=== PATIENT | female | born 1965 | race Caucasian/White ===

== ENCOUNTER → 2023-01-23 16:28 | Outpatient (CLI) | payer OTHER, SELFPAY | PROVIDERS: PCP Internal Medicine; Referring Provider Orthopaedic Surgery Orthopaedic Surgery of the Spine; Visit Provider Orthopaedic Surgery Orthopaedic Surgery of the Spine | DX: Z01.818 Encounter for other preprocedural examination (principal) | CPT/HCPCS: 93005; 93010 ==

== ENCOUNTER 2023-02-08 06:28 | Inpatient (IN) | payer OTHER, SELFPAY ==
[2023-02-04 10:46] VITALS: BMI 37.2
[2023-02-08] VITALS (14 sets, daily range): BP systolic 113–156; BP diastolic 52–82; PULSE 66–103; RESP 12–18; TEMP 36–37.1; O2SAT 93–100; BMI 37.2
--- NOTE | 2023-02-08 | DI.RAD.S_ITS ---
PROCEDURE: XR LUMBAR SPINE 2-3V INDICATIONS: L3-4 TLIF TECHNIQUE: And 2 low resolution fluoroscopic spot films were obtained intraoperatively COMPARISON: None. FINDINGS: Intraoperative fluoroscopic spot films shows L3-4 interbody fusion with posterior prema and screw instrumentation. Additional partially imaged lower lumbar spine at instrumentation noted as well IMPRESSION: Fluoroscopic guidance Approved by: Xavier Flynn M.D. on 02/08/2023 at 11:00
[2023-02-08] MEDS: LACTATED RINGERS 1,000 ML 42 ML IV (07:09)
--- NOTE | 2023-02-08 07:39 | PM.PREOP ---
Pre-operative Note COVID-19 Criteria for continued procedure: Expected advancement of disease process, Possibility delay results in more complex future surgery or treatment, Increased loss of function, Continuing or worsening of significant or severe pain, Deterioration of the patient's condition or overall health and Delay expected to result in less-positive ultimate med/surg outcome Interval Note History & Physical reviewed/Exam performed by Physician: Yes Changes to H&P: No
[2023-02-08] MEDS: CEFAZOLIN 2 GM/100 ML PREMIX 100 ML IV ×2 (08:05→15:58)
--- NOTE | 2023-02-08 08:23 | SUR.OPER ---
Prone on spine table, head in foam head support, padded chest and pelvic supports, gel pad at knees, lower legs supported by pillows; nipples, genitalia and toes free of pressure, arms secured on foam padded arm boards at <90 degrees abduction. Gel pads to abdomen. Tape over blanket at thigh secured to table.
[2023-02-08] MEDS: BUPIVACAINE LIPOSOME 266 MG/20 ML VIAL INJ (08:31)
[2023-02-08] MEDS: BUPIVACAINE 0.25% (PF) 60 ML, EPINEPHrine 0.15 MG INJ (08:32)
--- NOTE | 2023-02-08 11:04 | PM.OP.1 ---
Operative Date/Time/Diagnoses Date of procedure: 02/08/23 Time of procedure: 07:40 Pre-op diagnosis: 1. L3-4 spinal stenosis with neurogenic claudication 2. History of L4-S1 fusion with instrumentation Post-op diagnosis: same Procedure & Clinicians Procedure: 1. L3-4 posterolateral and posterior interbody fusion 2. L3-4 posterior interbody cage placement 3. L4-5 revision laminectomy with exploration of fusion 4. L3-4 posterior segmental instrumentation with pedicle screw placement 5. L4-5 posterolateral fusion 6. [place] of bone marrow from iliac crest through a separate incision 7. Utilization of microsurgical technique and operating microscope Same procedure as scheduled: Yes Indications: Patient has been having chronic back pain and worsening lumbar radiculopathy and symptoms of neurogenic claudication. Patient failed multiple conservative management with worsening pain weakness and numbness in her lower extremity. Patient has been having difficulty performing activity of daily living. After discussing risks benefits of treatment options, patient elected proceed with surgery. Surgeon: Greta Corrigan Organizational Research Consultant: Kena Davis Click Yes if Unassisted: No Anesthesia Type: General Operative Notes Closure Type: primary Specimen(s): none sent Prosthetic devices, grafts, tissues, transplants, or devices: Globus CREO MIS screws, Rise cage, Globus Extend system Estimated Blood Loss (mL): 150 Blood products transfused: none Procedure in detail: Patient was seen in the preoperative area. Risks and benefits of the surgery was discussed with the patient. Informed consent was obtained from the patient and placed in the chart. Surgical site was marked. Patient was taken to the operative room. General anesthesia was administered. Prophylactic antibiotic was given to the patient less than 30 min before the incision was made. Patient was placed into a prone position on the Isiah table. Patient's back was then prepped and draped in the sterile fashion. Time-out was performed at this time. Using patient's previous scar incision was made over the L3-5 interval on the right side. Fascia was incised in line with skin incision. Patient's previously placed hardware over the L3-5 level was identified by dissecting down to the level the hardware using a Bovie and a Lopez. The L4-L5 Tulip and rods was exposed and freed up of any scar tissue and calcified fusion mass in order to attach extension of posterior hardware. The Globus and MARS retractors was then placed into the wound and docked onto the L3 lamina using C-arm guidance. Using microsurgical technique and operating microscope a laminectomy facetectomy was performed by removing the L3 lamina and the L3-4 facet. The laminectomy and facetectomy was performed in order to decompress patient's cauda equina as well as the nerve roots exiting at the L3-4 level. The disc space at L3-4 level was identified next. And a total diskectomy was performed at L3-4 level. The endplates were decorticated using a rasp and shaver. The total diskectomy and decortication was performed at L3-4 level in order to to accomplish a L3-4 fusion. The local bone from the laminectomy and facetectomy was saved for local bone grafting. After the total diskectomy and decortication was completed, Globus Trifecta bone graft material was combined with local bone that was harvested earlier. At this time, a separate skin is incision was made over the iliac crest. A Jamshidi needle was inserted into the iliac crest through a separate skin incision. 5 cc of bone marrow aspiration was obtained through the separate skin incision using a Jamshidi needle from the iliac crest. The bone marrow aspiration was combined with local bone and the Trifecta bone grafting material. The bone grafting material was placed into the L3-4 interbody space along with a expandable cage. The cage was expanded to its maximum height using the torque limiting screwdriver. At this time a mirror image incision was made on the left side. The fascia was incised in line with the skin incision. Patient's previously placed hardware on the left side was then exposed in the same fashion as it was on the right side. The hardware was also found to have good purchase. The fusion mass on the left side was exposed by performing a left-sided hemilaminectomy at L4-5 level. The hemilaminectomy was performed using the Kerrison rongeur to undercut the lamina as well removing additional epidural scar tissue for purpose of decompressing the epidural space. The fusion mass was explored and was found have visible motion indicating pseudoarthrosis at L3-4 level. Globus MARS retractor was inserted and docked onto the L3-4, L4-5 posterolateral gutter. Using the power drill, posterior-lateral decortication was performed at L3-4, L4-5 level until bleeding cortical bone was identified. The remaining bone grafting material was placed into the L3-4, L4-5 posterior lateral gutter he order to accomplish posterolateral fusion at the L3-4, L4-5 level. Using the double C-arm technique, pedicle screws were placed into the L3 pedicles on the right side. This was done by placing the Jamshidi needle into the pedicles, then placing the guidewires over the Jamshidi needle, and finally placing the cannulated screws over the guidewires on the right side. A L3 pedicle screw was placed into the left side using the same technique over time she and guidewire. The [employer] expansion system was used to attach the L3 pedicle screw to the prema between L3-4 pedicle on both sides. After all locking bolt was tightened down using torque limiting drivers, locking prema was then placed into the tulips and locked into place used torque limiting screwdriver. After the pedicle screws were placed, 2 titanium rods was locked into the heads of the pedicle screws using locking caps and torque limiting screwdriver. All hardware was found to have good purchase. After all the hardware was placed, and confirmed with AP and lateral C-arm imaging, the wound was then irrigated with sterile normal saline and packed with Ray-Ynes gauze for 3 min to accomplish hemostasis. After the gauze was removed the deep fascia was closed with #1 Vicryl suture. The subcutaneous layer was closed with 2-0 Vicryl. The skin was closed with skin josy. Patient tolerated the procedure well. There were no complications. Neuro monitoring was used throughout the entire case. The Operation could not have been safely performed without compromising the technical result or length of the procedure, without the assistance of a skilled surgical services asst. The surgical services asst was medically necessary for proper positioning, retraction and manipulation of instruments, proper exposure, surgical preparation, and manipulation of tissue. Complications: none Post-operative Condition: stable Disposition: PACU Plan for aftercare: Admit to inpatient hospital
--- NOTE | 2023-02-08 11:28 | SUR.PREOP ---
attempted to call report to floor
[2023-02-08] MEDS: LACTATED RINGERS 1,000 ML 125 ML IV (13:40)
--- NOTE | 2023-02-08 14:20 | OT.IP.EVAL ---
Current Diagnoses Spinal stenosis, lumbar region with neurogenic claudication (02/08/23) Arthrodesis status (02/08/23) Surgery Performed Operation Date: 02/08/23 07:45 Actual Procedures p L3-4 TLIF, exploration of fusion - Greta Corrigan MD Past Medical History (Last Updated 02/04/23 @ 13:25 by Sabine Banda, RN) ADHD Anxiety Depression Easy bruisability Manjula-Danlos syndrome Elevated cholesterol Fibromyalgia GERD (gastroesophageal reflux disease) History of COVID-19 (08/2020) Cleary's neuroma of both feet Myelopathy PTSD (post-traumatic stress disorder) Sciatica Surgical History (Last Updated 02/04/23 @ 13:16 by Sabine Banda, RN) History of arthroscopy of right shoulder History of bilateral tubal ligation History of cholecystectomy (2003) History of femoral hernia repair History of hysterectomy History of lumbar spinal fusion (2011) Hx of oophorectomy Hx of sinus surgery Hx of tonsillectomy (1983) Occupational Therapy Inpatient Evaluation/Re-Eval M1 PT/OT-IP Prior Functional Status Start: 02/08/23 14:20 Freq: NEEDED Status: Active Protocol: Document 02/08/23 14:21 [facility] (Rec: 02/08/23 14:45 [facility] [id number]) Medical Review Prior Functional Status Communication Independent Mobility and Gait On occasion use of SPC for mobility. Activities of Daily Living and IADL's Pt able to do all ADl and IADL but had pain. Social History Household Members spouse Living Arrangements House Number of Floors (Floors) One Floor Number of Stairs To Enter/Railing? On small step/threshold to be able to get into the house. 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 M2 OT-IP Current Condition Start: 02/08/23 14:20 Freq: Status: Active Protocol: Document 02/08/23 14:21 [facility] (Rec: 02/08/23 14:45 [facility] [id number]) Occupational Therapy Current Condition Current Condition Evaluation Date 02/08/23 Treatment Diagnosis S/p L3-4, L4-5 TLIF Diagnosis Onset Date 02/08/23 Post Operative Precautions Lumbar Precautions Log Roll,No Twisting,Limit Bending,Lifting Restriction of 10 lbs,Gait Belt above Incisional Area M3 OT- IP Subjective and Pain Start: 02/08/23 14:20 Freq: Status: Active Protocol: Document 02/08/23 14:21 [facility] (Rec: 02/08/23 14:45 [facility] [id number]) OT- Subjective Occupational Therapy Visit Type Type Initial Evaluation Visit Start Time 13:47 Visit Stop Time 14:20 Total Visit Minutes 33 Occupational Therapy Visit Comments Patient Comments Pt agreed to get up and her spouse in the room. Patient/Caregiver Goals To go home OT Pain Assessment Pain When Pain Assessed At Rest Pain Present Pain Present Pain Reported Location back Intensity 1 Scale Used Numeric (0 - 10) M4 OT- IP ADL's Start: 02/08/23 14:20 Freq: Status: Active Protocol: Document 02/08/23 14:21 [facility] (Rec: 02/08/23 14:45 [facility] [id number]) OT [id number] Comments OT Self-Feeding Comments No issues anticipated. OT ADL-Grooming Comments OT Grooming Comments Not performed. OT ADL-Oral Care Comments Oral Care Comments Not performed. OT ADL-Dressing Comments OT Dressing Comments Pt has all LB dressing equipment needs at home. OT ADL-Toileting General Evaluation Toileting Ability Standby Assistance Comments OT Toileting Comments Pt able to wipe after urinating in the toilet. Pt states has a toilet paper aid at home and has considered getting a bidet. OT ADL-Bathing Comments OT Bathing Comments Pt's spouse can assist, may benefit from a shower chair. M5 OT- IP IADL's Start: 02/08/23 14:20 Freq: Status: Active Protocol: Document 02/08/23 14:21 [facility] (Rec: 02/08/23 14:45 [facility] [id number]) OT-Instrumental Activities of Daily Living Deficits IADL Deficits Identified Deficits Home Safety Awareness Awareness of Need for Assistance at Home Good Awareness Ability to Problem Solve Emergency Able to Problem Solve Situations Home Safety Comments Pt starting to get a little groggy. Pt's spouse to be able to assist. M6 OT- IP Functional Cognition Start: 02/08/23 14:20 Freq: Status: Active Protocol: Document 02/08/23 14:21 [facility] (Rec: 02/08/23 14:45 [facility] [id number]) Cognitive Factors Limiting Selfcare Function Cognitive Ability Level of Alertness Alert Patient Orientation Name,Place,Situation Attention Span Ability Capable of Focused Attention, Capable of Sustained Attention Ability to Follow Commands Able to Follow One Step Commands Cognitive Comments Cognitive Assessment Comments Pt able to follow commands for back precautions for bed mobility. Pt just needing reminders to use her hands to push up from the bed to stand and reach back with her hands prior to sitting back down. Also reminders to get he legs off the bed prior to pushing herself up from sidelying. OT- Vision and Hearing OT- Hearing Assessment OT- Hearing Assessment WFL M7 OT- IP Mobility and Balance Start: 02/08/23 14:20 Freq: Status: Active Protocol: Document 02/08/23 14:21 [facility] (Rec: 02/08/23 14:45 [facility] [id number]) OT- Bed Mobility Assessment Rolling Level of Assistance Standby Assistance Supine to Sit Supine to Sit Assist Contact Guard Assistance Scooting Scooting to Edge of Bed Standby Assistance OT-Transfer Assessment Sit to and From Stand Sit to and from Stand Contact Guard Assistance Transfers Transfer Ability Contact Guard Assistance Technique Transfer Destination Bed,Chair,Toilet Transfer Technique Stand Step Pivot Devices Transfer Assistive Devices Gait Belt,Front Wheeled Walker Comments Mobility Comments CGA to get upright and CGA to stand to FWW and for slight unsteadiness on her feet with use of FWW to walk to the bathroom and to the recliner. OT- Balance Assessment Sitting Balance and Reactions Static Sitting Balance Ability Good Dynamic Sitting Balance Ability Good Standing Balance and Reactions Static Standing Balance Ability Fair Dynamic Standing Balance Ability Fair M8 OT- IP Objective Assessments Start: 02/08/23 14:20 Freq: Status: Active Protocol: Document 02/08/23 14:21 [facility] (Rec: 02/08/23 14:45 [facility] [id number]) OT-Muscle Tone Assessment Muscle Tone WNL Yes M9 OT- IP Assessment and Plan Start: 02/08/23 14:20 Freq: Status: Active Protocol: Document 02/08/23 14:21 [facility] (Rec: 02/08/23 14:45 [facility] [id number]) OT Summary Assessment and Plan Potential Rehabilitation Potential Good Analytic Complexity at Evaluation Low Summary OT Impairments Pain,Balance,Functional Mobility,Dressing,Toileting, Bathing,Toilet Transfers, Shower Transfers Progress Towards Goals Progressing Toward Goals Assessment Summary Pt low complexity and able to use the toilet for OT eval. Pt has all LB dressing equipment , toilet paper aid, and considering getting a bidet. Pt looking to go home when medically stable. Pt on 2L O2 and at 95-100% and on RA from 88-93%. Pt to go home with her to assist when medically stable. Goals Self-Feeding Goal Independent Grooming Goal Independent Dressing Goal Independent Toileting Goal Independent Bathing Goal Independent Toilet Transfer Goal Independent Shower Transfer Goal Independent Days to Meet Goals 3 Frequency of Treatment Frequency Of Treatment Once a Day Treatment Plan OT Treatment Plan ADL Training,Functional Mobility,Patient/Family Education,Discharge Planning Discharge Recommendations OT Discharge Recommendations Home with Assistance Transportation Needs at Discharge Private Vehicle
--- NOTE | 2023-02-08 15:03 | PT.IIE ---
Current Diagnoses Spinal stenosis, lumbar region with neurogenic claudication (02/08/23) Arthrodesis status (02/08/23) Surgery Performed Operation Date: 02/08/23 07:45 Actual Procedures p L3-4 TLIF, exploration of fusion - Greta Corrigan MD Surgical History (Last Updated 02/04/23 @ 13:16 by Sabine Banda, RN) History of arthroscopy of right shoulder History of bilateral tubal ligation History of cholecystectomy (2003) History of femoral hernia repair History of hysterectomy History of lumbar spinal fusion (2011) Hx of oophorectomy Hx of sinus surgery Hx of tonsillectomy (1983) Medical History (Last Updated 02/04/23 @ 13:25 by Sabine Banda, RN) ADHD Anxiety Depression Easy bruisability Manjula-Danlos syndrome Elevated cholesterol Fibromyalgia GERD (gastroesophageal reflux disease) History of COVID-19 (08/2020) Cleary's neuroma of both feet Myelopathy PTSD (post-traumatic stress disorder) Sciatica Physical Therapy Inpatient Evaluation/Re-Eval M1 PT/OT-IP Prior Functional Status Start: 02/08/23 14:20 Freq: NEEDED Status: Active Protocol: Document 02/08/23 14:52 [facility] (Rec: 02/08/23 15:03 [facility] [id number]) Medical Review Prior Functional Status Medical History Reviewed Yes Diet/Fluid Consistency Regular Communication Independent Mobility and Gait On occasion use of SPC for mobility. Activities of Daily Living and IADL's Pt able to do all ADL and IADL but had pain. Social History Household Members spouse Living Arrangements House Number of Floors (Floors) One Floor Number of Stairs To Enter/Railing? On small step/threshold to be able to get into the house. 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 M2 PT-IP Current Condition Start: 02/08/23 14:44 Freq: NEEDED Status: Active Protocol: Document 02/08/23 14:52 [facility] (Rec: 02/08/23 15:03 [facility] [id number]) Physical Therapy Current Condition Current Condition Evaluation Date 02/08/23 Treatment Diagnosis S/p L3-4, L4-5 TLIF Onset Date 02/08/23 M3 PT-IP Subjective Start: 02/08/23 14:44 Freq: NEEDED Status: Active Protocol: Document 02/08/23 14:52 [facility] (Rec: 02/08/23 15:03 [facility] [id number]) Subjective Physical Therapy Visit Type Type Initial Evaluation Visit Start Time 14:16 Visit Stop Time 14:34 Total Visit Minutes 22 Physical Therapy Visit Comments Patient Comments Patient up in chair after OT session. present. Patient reported no pain but feeling a little shaky in her legs. Agreeable to walk with PT. Therapy Pain Assessment Pain When Pain Assessed During Mobility Pain Present Pain Present Denied Pain M4 PT-IP Mobility and Gait Start: 02/08/23 14:44 Freq: NEEDED Status: Active Protocol: Document 02/08/23 14:52 [facility] (Rec: 02/08/23 15:03 [facility] [id number]) PT-Transfer Assessment Sit to and From Stand Sit to and from Stand Standby Assistance,Use of Upper Extremities Equipment Transfer Assistive Device Gait Belt,Front Wheeled Walker Transfers Transfer Destination Chair Comments Mobility Comments Patient demonstrated appropriate hand placement on chair vs FWW during transfers without cueing. OT stated patient was CGA/SBA for getting out of bed and transferring to recliner. Patient up in recliner at end of session with all belongings and call light within reach, pillows behind back, and pillow under feet. Gait Assessment Gait Gait Assistance Required: Contact Guard Assist Distance (Feet) 150 Assistive Devices Assistive Device Gait Belt,Front Wheeled Walker Gait Deviations General Gait Pattern Decreased Stride Length, Decreased Feet Clearance Factors Limiting Gait Function Factors Limiting Gait Function Decreased Strength Comments Gait Comments Patient ambulated with decreased geovanny and speed. No unsteadiness noted. FWW adjusted higher to reduce forward bend and she was able to ambulate with good upright posture. PT-Balance Assessment Sitting Balance and Reactions Static Sitting Balance Ability Good Dynamic Sitting Balance Ability Good Standing Balance and Reactions Static Standing Balance Ability Good Dynamic Standing Balance Ability Good Device Used FWW M5 PT-IP Objective Assessments Start: 02/08/23 14:44 Freq: NEEDED Status: Active Protocol: Document 02/08/23 14:52 [facility] (Rec: 02/08/23 15:03 [facility] [id number]) Orientation Orientation/Cognition Level of Alertness Alert Orientation Name,Age,Birthday,Month,Date, Year,Day of Week,Place, Situation Language Function Ability No Deficits Noted Safety Awareness Understands Safety Issues Memory Description No Deficits Noted Gross Range of Motion Upper Extremity ROM Assessment Within Functional Limits Lower Extremity ROM Assessment Within Functional Limits Strength Upper Extremity Strength Assessment Within Functional Limits Lower Extremity Strength Assessment Within Functional Limits M6 PT-IP Treatment Start: 02/08/23 14:44 Freq: NEEDED Status: Active Protocol: Document 02/08/23 14:52 [facility] (Rec: 02/08/23 15:03 [facility] [id number]) Physical Therapy Treatment Education Education Provided Precautions,Safety M7 PT-IP Assessment and Plan Start: 02/08/23 14:44 Freq: NEEDED Status: Active Protocol: Document 02/08/23 14:52 [facility] (Rec: 02/08/23 15:03 ES [id number]) PT Summary Assessment and Plan Potential Rehabilitation Potential Excellent Status of Condition at Evaluation Stable Summary Impairments Strength,Balance,Bed Mobility, Transfers,Gait Assessment Summary Patient is a 57 year old female POD 0 s/p L3-4 L4-5 TLIF. Bed mobility not assessed as patient had gotten up with OT prior to session, though OT reported patient was SBA/CGA for this. Patient was able to ambulate 150 ft with FWW maintaining SPO2 >90% on room air, BP was stable throughout. She demonstrated good understanding and follow through with lumbar precautions. She will benefit from further skilled therapy to increase strength to be more independent with functional mobility prior to d /c home, likely tomorrow. Goals Bed Mobility Goal Independent Transfer Goal Independent,Front Wheeled Walker Gait Goal Independent,Front Wheel Walker Gait Distance 300 ft Other Goals Patient will be able to ascend /descend 1 stair with FWW modified indep. Days to Meet Goals 3 Frequency of Treatment Frequency Of Treatment Twice a Day Treatment Plan Physical Therapy Treatment Plan Bed Mobility Training,Transfer Training,Gait Training, Therapeutic Exercise,Post Op Education,Discharge Planning, Hot or Cold Pack Precautions Lumbar Precautions Log Roll,No Twisting,Limit Bending,Lifting Restriction of 10 lbs,Gait Belt above Incisional Area Recommendations To Nursing Amount of Assist Needed Standby Assistance Discharge Recommendations PT Discharge Recommendations Home with Assistance Transportation Needs at Discharge Private Vehicle
[2023-02-08] MEDS: hydrOXYzine pamoate 25 MG CAPSULE PO (15:51)
[2023-02-08] MEDS: ACETAMINOPHEN 325 MG TABLET 650 MG PO ×2 (15:54→22:10)
--- NOTE | 2023-02-08 16:43 | PC.NURSE ---
Pt arrived from PACU this afternoon, A&OX4. She reports pain is well controlled. Dressing to back c/d/i. She has +CMS to BLE and feet, she denies numbness/tingling. She is able to sit up in the chair and ambulate with SBA to bathroom. She is voiding without difficulty. IVF LR at 125ml/hr, and she tolerates IV antibiotic well. She is able to eat meals well and denies n/v. When she falls asleep noted 02 saturation in upper 80's and placed 1 LNC 02. Continuous monitoring, Call light in reach.
[2023-02-08] MEDS: ALBUTEROL 2.5 MG/3 ML NEB (ADULT) INH (18:35)
[2023-02-08] MEDS: TIZANIDINE 4 MG TABLET PO (20:22)
[2023-02-08] MEDS: IBUPROFEN 400 MG TABLET PO (22:10)
[2023-02-09] VITALS: BP 111/53; PULSE 74; RESP 18; TEMP 37.6; O2SAT 97
[2023-02-09] MEDS: CEFAZOLIN 2 GM/100 ML PREMIX 100 ML IV
[2023-02-09] MEDS: OXYCODONE IR 10 MG TABLET PO (02:27)
[2023-02-09 05:51] VITALS: BP 100/40; PULSE 80; RESP 18; TEMP 37.4; O2SAT 93
[2023-02-09 09:11] VITALS: BP 91/42; PULSE 83; RESP 16; TEMP 37.3; O2SAT 94
--- NOTE | 2023-02-09 09:16 | PT.IPTN ---
Current Diagnoses Spinal stenosis, lumbar region with neurogenic claudication (02/08/23) Arthrodesis status (02/08/23) Surgery Performed Operation Date: 02/08/23 07:45 Actual Procedures p L3-4 TLIF, exploration of fusion - Greta Corrigan MD Physical Therapy Treatment Note M2 PT-IP Current Condition Start: 02/08/23 14:44 Freq: NEEDED Status: Active Protocol: Document 02/08/23 14:52 ES (Rec: 02/08/23 15:03 ES [id number]) Physical Therapy Current Condition Current Condition Evaluation Date 02/08/23 Treatment Diagnosis S/p L3-4, L4-5 TLIF Onset Date 02/08/23 M3 PT-IP Subjective Start: 02/08/23 14:44 Freq: NEEDED Status: Active Protocol: Document 02/09/23 09:40 TS (Rec: 02/09/23 09:50 TS [id number]) Subjective Physical Therapy Visit Type Type Treatment Note Visit Start Time 09:16 Visit Stop Time 09:32 Total Visit Minutes 16 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 M4 PT-IP Mobility and Gait Start: 02/08/23 14:44 Freq: NEEDED Status: Active Protocol: Document 02/09/23 09:40 TS (Rec: 02/09/23 09:50 TS [id number]) PT-Bed Mobility Assessment Rolling Level of Assist Standby Assistance Supine to Sit Supine to Sit Standby Assistance Sit to Supine Sit to Supine Standby Assistance Scooting Scooting to Edge of Bed Standby Assistance PT-Transfer Assessment Sit to and From Stand Sit to and from Stand Standby Assistance,Use of Upper Extremities Equipment Transfer Assistive Device Gait Belt,Front Wheeled Walker Comments Mobility Comments Sit to stand from chair SBA with FWW with UE support on FWW, demonstrates good posture with no retroleaning. She ambulated ~250' SBA, reported LEs feeling wobbly after ~ 200', no buckling or LOB, denied any dizziness. She performed 1 step CGA on step stool with BUE suppport on FWW and sink counter. She performed sit to supine and supine to sit SBA, demonstrates good carryover of sequencing and spinal precautions. Pt was left back in chair with call light nearby, all needs met, RN notified. Gait Assessment Gait Gait Assistance Required: Standby Assistance Distance (Feet) 250 Assistive Devices Assistive Device Gait Belt,Front Wheeled Walker Gait Deviations General Gait Pattern Within Normal Limits Factors Limiting Gait Function Factors Limiting Gait Function Decreased Strength Comments Gait Comments Pt ambulated ~250' with normal gait, good heel to toe contact with FWW. Stair Climbing Assessment Evaluation Level of Assist On Stairs Contact Guard Assistance Devices Stair Climbing Assistive Devices Left Railing,Right Railing Technique/Endurance Stair Climbing Direction Ascend and Descend Stair Climbing Technique Step to Step Number of Steps Climbed 1 Comments Stair Climbing Comments See mobility comments. PT-Balance Assessment Sitting Balance and Reactions Static Sitting Balance Ability Good Dynamic Sitting Balance Ability Good Standing Balance and Reactions Static Standing Balance Ability Good Dynamic Standing Balance Ability Good Device Used FWW M5 PT-IP Objective Assessments Start: 02/08/23 14:44 Freq: NEEDED Status: Active Protocol: Document 02/08/23 14:52 ES (Rec: 02/08/23 15:03 ES [id number]) Orientation Orientation/Cognition Level of Alertness Alert Orientation Name,Age,Birthday,Month,Date, Year,Day of Week,Place, Situation Language Function Ability No Deficits Noted Safety Awareness Understands Safety Issues Memory Description No Deficits Noted Gross Range of Motion Upper Extremity ROM Assessment Within Functional Limits Lower Extremity ROM Assessment Within Functional Limits Strength Upper Extremity Strength Assessment Within Functional Limits Lower Extremity Strength Assessment Within Functional Limits M6 PT-IP Treatment Start: 02/08/23 14:44 Freq: NEEDED Status: Active Protocol: Document 02/09/23 09:40 TS (Rec: 02/09/23 09:50 TS [id number]) Physical Therapy Treatment Education Education Provided Precautions,Safety M7 PT-IP Assessment and Plan Start: 02/08/23 14:44 Freq: NEEDED Status: Active Protocol: Document 02/09/23 09:40 TS (Rec: 02/09/23 09:50 TS [id number]) PT Summary Assessment and Plan Potential Rehabilitation Potential Excellent Summary Impairments Strength,Balance,Bed Mobility, Transfers,Gait Progress Towards Goals Progressing Toward Goals Assessment Summary Pt is progressing well with her mobility this session. She is SBA for all mobility except CGA for 1 step. She demonstrates good safety awareness with mobility and of her spinal precautions. She progressed her gait to ~250' SBA, did report feeling wobbly after ~200', no buckling or LOB, denied any dizziness. PT is recommending return home with assist from spouse. Goals Bed Mobility Goal Independent Transfer Goal Independent,Front Wheeled Walker Gait Goal Independent,Front Wheel Walker Gait Distance 300 ft Other Goals Patient will be able to ascend /descend 1 stair with FWW modified indep. Days to Meet Goals 3 Frequency of Treatment Frequency Of Treatment Twice a Day Treatment Plan Physical Therapy Treatment Plan Bed Mobility Training,Transfer Training,Gait Training, Therapeutic Exercise,Post Op Education,Discharge Planning, Hot or Cold Pack Precautions Lumbar Precautions Log Roll,No Twisting,Limit Bending,Lifting Restriction of 10 lbs,Gait Belt above Incisional Area Recommendations To Nursing Amount of Assist Needed Standby Assistance Discharge Recommendations PT Discharge Recommendations Home with Assistance Transportation Needs at Discharge Private Vehicle
[2023-02-09] MEDS: PANTOPRAZOLE DR 40 MG TABLET PO (10:07)
[2023-02-09] MEDS: SERTRALINE 50 MG TABLET 200 MG PO (10:07)
[2023-02-09] MEDS: DOCUSATE 100 MG CAPSULE PO (10:07)
--- NOTE | 2023-02-09 10:44 | PM.DS.1 ---
History of Present Illness History of Present Illness Date Patient Seen: 02/09/23 Time Patient Seen: 10:44 Chief complaint: TLIF Narrative: Patient is reclining in chair this morning. She denies pain and states that she did well overnight. Denies fever, chills, nausea, vomiting. Patient tolerated oxycodone last night and did not have to use the Zofran that was available to her. She states if working with physical therapy went smoothly. She is looking forward to discharging to home today. Discharge Providers Provider Date of admission: 02/08/23 06:28 Discharge Date: 02/09/23 Primary care physician: Inés Burgos MD Consults: 02/08/23 12:04 Consult to Occupational Therapy Evaluate & Treat Comment: Physician Instructions: Evaluate and treat Consult to Physical Therapy Evaluate & Treat Comment: Physician Instructions: Evaluate and Treat Discharge provider: Kena Davis PA-C Summary Hospital Course Discharge Diagnosis: Status post TLIF Hospital Course: Operative Date/Time/Diagnoses Date of procedure: 02/08/23 Time of procedure: 07:40 Pre-op diagnosis: 1. L3-4 spinal stenosis with neurogenic claudication 2. History of L4-S1 fusion with instrumentation Post-op diagnosis: same Procedure & Clinicians Procedure: 1. L3-4 posterolateral and posterior interbody fusion 2. L3-4 posterior interbody cage placement 3. L4-5 revision laminectomy with exploration of fusion 4. L3-4 posterior segmental instrumentation with pedicle screw placement 5. L4-5 posterolateral fusion 6. Darrow of bone marrow from iliac crest through a separate incision 7. Utilization of microsurgical technique and operating microscope Same procedure as scheduled: Yes Indications: Patient has been having chronic back pain and worsening lumbar radiculopathy and symptoms of neurogenic claudication. Patient failed multiple conservative management with worsening pain weakness and numbness in her lower extremity.? Patient has been having difficulty performing activity of daily living.? After discussing risks benefits of treatment options, patient elected proceed with surgery. Surgeon: Greta Corrigan Refueler: Kena Davis Click Yes if Unassisted: No Anesthesia Type: General Operative Notes Closure Type: primary Specimen(s): none sent Prosthetic devices, grafts, tissues, transplants, or devices: Globus CREO MIS screws, Rise cage, Globus Extend system Estimated Blood Loss (mL): 150 Blood products transfused: none Exam Vital Signs (past 8 hours): - 02/09/23 05:51 02/09/23 09:11 Temperature 99.3 F 99.1 F Pulse Rate 80 83 Respiratory Rate 18 16 Blood Pressure 100/40 L 91/42 L Pulse Oximetry 93 94 Oxygen Flow Rate 0 0 Oxygen Delivery Method Room Air Oxygen Flow Rate 0 Narrative Exam Narrative: Pleasant 57-year-old female. Awake, alert, and oriented. Did not observe intraoperative dressing as patient is reclined in chair. Strength and sensation intact to bilateral lower extremities. Bilateral calf soft, compressible, nontender with no palpable cords or masses. [facility] Medical History ADHD Anxiety Depression Easy bruisability Manjula-Danlos syndrome Elevated cholesterol Fibromyalgia GERD (gastroesophageal reflux disease) History of COVID-19 (08/2020) Cleary's neuroma of both feet Myelopathy PTSD (post-traumatic stress disorder) Sciatica Surgical History History of arthroscopy of right shoulder History of bilateral tubal ligation History of cholecystectomy (2003) History of femoral hernia repair History of hysterectomy History of lumbar spinal fusion (2011) Hx of oophorectomy Hx of sinus surgery Hx of tonsillectomy (1983) Social History household members: spouse Smoking Status: Never smoker alcohol intake: never Discharge Assessment & Plan Assessment and Plan Assessment: Patient is progressing as expected after TLIF yesterday. Pain is well managed with medication. Plan of Treatment: Patient has been cleared by Physical therapy to discharge to home with assistance from spouse. Continue multimodal pain regimen as needed. Continue spine precautions. Follow up with Orthopedics 2 weeks after surgery for staple removal. Discharge Plan Discharge Plan Patient Disposition: Home Discharge orders & Medications Prescriptions: New oxycodone 5 mg tablet 5 mg PO Q4H PRN (Reason: pain) Qty: 40 0RF acetaminophen 325 mg Tablet 650 mg PO Q6H PRN (Reason: Fever/Mild Pain (1-3)) Qty: 120 0RF hydroxyzine pamoate 25 mg Capsule 25 mg PO Q4HR PRN (Reason: Nausea And Vomiting) Qty: 40 0RF ondansetron 4 mg tablet,disintegrating 4 mg PO Q6H PRN (Reason: nausea and vomiting) Qty: 10 0RF Continued lorazepam 0.5 mg Tablet 0.25 mg PO DAILY PRN (Reason: Anxiety) pantoprazole 40 mg Tablet,Delayed Release (Dr/Ec) 40 mg PO DAILY Loratadine-D 5-120 mg Tablet Extended Release 12 Hr 1 tab PO Q12H tizanidine 4 mg Capsule 4 mg PO BEDTIME sertraline 200 mg Capsule 200 mg PO DAILY albuterol sulfate 90 mcg/actuation Hfa Aerosol Inhaler 2 puff INHALATION BID PRN (Reason: Shortness Of Breath) Discontinued ibuprofen [Motrin IB] 200 mg Capsule 800 mg PO BID PRN (Reason: Pain) Follow up/Referrals: Inés Burgos MD [Primary Care Provider] - Greta Corrigan MD [Physician] - 2 Weeks (Follow up with orthopedics 2 weeks after surgery for removal of josy. ) Diet/Activity/Treatments Diet: Diet as Tolerated Activity: Up and walking as tolerated. Cold/Heat Therapy: Ice/Heat to back as needed. Skin/Wound/Dressing Care Dressing: Keep dressing clean, dry, and intact until 2 week follow up with orthopedics. Visit Report/Discharge Packet Instructions: DI for Transforaminal Lumbar Interbody Fusion Stand Alone Forms: Patient Portal/API, Stroke Signs & Symptoms, Surgery Discharge Discharge Data Primary Care Provider: Inés Burgos Quality VTE Deep Vein Thrombosis/Pulmonary Embolism Present on Admission: No
--- NOTE | 2023-02-09 12:39 | CM.DANOTE ---
Initial Discharge Assessment Note: Met with patient, introduced self and role. Payer: [facility] and self pay PCP: Inés Burgos 57 year old with TLIF yesterday. Cleared for discharge today. Lives with spouse in [place]. 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 Plan: Discharge home to care of spouse who will transport. SEJ Discharge Planning/Care Management CM Discharge Assessment Start: 02/09/23 12:37 Freq: Status: Discharge Protocol: Document 02/09/23 12:37 SJ (Rec: 02/09/23 12:39 [id number]) Discharge Planning Assessment Assigned Facilities Clerk Stephanie Conley RN/TAYLORP Advance Directives? No History Provided By Patient,Medical Record Prior Living Arrangements House Household Members spouse Type of transporation used prior to Drives own vehicle admit Independent with ADL's Yes Is patient alert and oriented? Yes Caregiver for Another No Discharge Plan Home Referrals Initiated None needed Review Status In Process Next Review Type Continued Stay Review Pre-Anesthesia Assessment Start: 02/04/23 10:46 Freq: Status: Complete Protocol: Document 02/04/23 10:46 [facility] (Rec: 02/04/23 11:00 [facility] [id number]) Pre-Anesthesia Assessment Preferred Name Amparo Patient Information Reviewed Via Phone Assessment Assessment Completed With Patient Diagnostic Results BMP/CMP,CBC,EKG Comment Outside labs scanned, EKG @ 01/23/23 Primary Care Provider Inés Burgos Seen Specialist in Last 12 Months Yes Specialist Seen ENT,Orthopedist Primary Language Amharic Manager Transfusion Required No Height 172.72 cm Weight 111.13 kg Body Mass Index (BMI) 37.2 Hearing Ability Normal Visual Assist Glasses Dentition Type Teeth, Natural Present,Teeth, Missing Barriers to Learning None Hx Anesthesia Reactions Yes: Hypotension, does not tolerate many narcotics Hx Family Anesthesia Reaction No Hx Malignant Hyperthermia No Hx Blood Transfusions No Anesthesia Review Requested No Instructor Product Inspection No alcohol intake never Smoking Status Never smoker Substance Use Type does not use Pain Present Pain Reported Musculoskeletal Symptoms Abnormal Gait,Back Pain, Difficulty Walking,Joint Pain, Muscle Spasms,Numbness, Radiating Pain into Limb, Tingling History of Falling (Recent or History of Yes ) Patient is completely paralyzed or No completely immobile Mental Status Oriented to own ability Is patient on oxygen? No Does patient have MEJIA/SOB No Hx Sleep Apnea No Currently Taking a Beta Maged No Hx Chest Pain No Hx SOB No Hx Syncope or Dizziness No Anti-Coagulant Therapy No Has a Crime Data Specialist No Cardiac Testing No Hx Pacemaker/ICD No Pacemaker Rep Required? No Cardiac Clearance Received Not Applicable Diet Type At Home Regular Dysphagia No Gastrointestinal Symptoms Constipation,Reflux Chronic UTI No Bladder Pattern Urgency Urinary Catheter Present No Hx Urinary Self Catheterization No Diabetes No Patient No Lactating No Hx Drug Resistant Organism No Presence of External or Internal Medical Yes: Lumbar hardware Devices Have you had any close contact with No someone diagnosed with COVID-19? Received a COVID vaccine? Yes Received all doses? Yes Marital Status Lives With spouse Current Living Arrangements House Number of Floors (Floors) One Floor Number of Stairs To Enter/Railing? None Support System Spouse Does the Patient Have Assistance After Yes Surgery Patient Discharge Plan Description Return Home Comment Pt advised overnight length of stay per surgeon Feels Safe in Current Environment Yes Been Physically Hurt or Threatened By a No Person in Current Environment Do you have thoughts of harming yourself None or others? Are you currently considering suicide? No Do you have a plan to hurt yourself or No Plan others? Do You Have Any Spiritual Beliefs That No May Affect Your HC Choices? Do You Have Any Cultural Practices That No May Affect Your HC Choices? Comment LDS Who Can We Speak to About Patient's Care Family, friends Identifying Code for Release of Patient Declines to issue Information Health Care Proxy/Next of Kin Kole () Health Care Proxy Emergency Contact Name Kole () Emergency Contact Advance Directives? No Power of Store Custodian No PAC Instructions Durable medical equipment, Medications to take/avoid, Nasal antibiotic,No ETOH/ petroleum product on skin DOS, Pre-surgical wash,Sensory aids ,Sturdy shoes/comfortable clothes,Do not bring valuables and remove jewelry
== END 2023-02-09 12:00 | disposition home or self-care (01) | DRG 454 ==
PROVIDERS: Admitting Provider Orthopaedic Surgery Orthopaedic Surgery of the Spine; PCP Internal Medicine; Referring Provider Orthopaedic Surgery Orthopaedic Surgery of the Spine; Visit Provider Orthopaedic Surgery Orthopaedic Surgery of the Spine
PROC: 0SG00AJ Fusion of Lumbar Vertebral Joint with Interbody Fusion Device, Posterior Approach, Anterior Column, Open Approach (ICD-10-PCS; principal; 2023-02-08 07:45)
DX: M48.062 Spinal stenosis, lumbar region with neurogenic claudication (principal); M96.0 Pseudarthrosis after fusion or arthrodesis; M43.16 Spondylolisthesis, lumbar region; M96.1 Postlaminectomy syndrome, not elsewhere classified; F41.9 Anxiety disorder, unspecified; K21.9 Gastro-esophageal reflux disease without esophagitis; F32.A Depression, unspecified; Z20.822 Contact with and (suspected) exposure to COVID-19; Z98.1 Arthrodesis status
CPT/HCPCS: 72100; 76000; 94640; 97116; 97161; 97165; C9290; J0171; J0690; J1100; J1170; J2250; J2405; J2704; J3010; J7613

== ENCOUNTER → 2023-08-05 12:10 | Outpatient (CLI) | payer OTHER, SELFPAY ==
[2023-02-08 12:16] VITALS: BMI 37.2
--- NOTE | 2023-08-05 | DI.MRI.S_ITS ---
PROCEDURE: MR HEAD/BRAIN WO CON INDICATIONS: Dizziness and giddiness TECHNIQUE: Noncontrast axial T1 spin echo, axial T2 fast spin echo, sagittal and axial FLAIR, coronal T2 fast spin echo, axial gradient echo, axial diffusion and ADC through the brain. COMPARISON: None. FINDINGS: Image quality: Excellent. CSF Spaces: Basal cisterns are patent. No extra-axial fluid collections. Ventricles are normal in size and shape. Brain: No intracranial masses or hemorrhage. [place]/white matter interface is normal. Brainstem appears normal. Diffusion-weighted sequence is unremarkable without evidence of acute infarct. Normal intravascular flow voids are present. Mild atrophy and white matter chronic ischemic change noted. Old small cortical infarct noted involving the right peripheral occipital cortex Skull and face: Calvarium has normal marrow signal. Orbits appear normal. Sinuses: Prior sinus surgery includes uncinectomy, middle turbinectomy and ethmoidectomy. Persistent bilateral maxillary mucosal thickening measures up to 3 mm. No air-fluid levels. IMPRESSION: Atrophy and chronic ischemic change without acute infarct, hemorrhage or mass lesion. Small right occipital cortical infarct. Maxillary mild mucosal thickening associated with prior sinus surgery Approved by: Xavier Flynn M.D. on 08/05/2023 at 19:02
== END ==
PROVIDERS: PCP Internal Medicine; Referring Provider Psychiatry & Neurology Neurology; Visit Provider Psychiatry & Neurology Neurology
DX: R42 Dizziness and giddiness (principal); H93.13 Tinnitus, bilateral; Z87.820 Personal history of traumatic brain injury; R26.81 Unsteadiness on feet; R29.6 Repeated falls; R20.0 Anesthesia of skin; R41.3 Other amnesia; R47.89 Other speech disturbances
CPT/HCPCS: 70551

== ENCOUNTER → 2025-04-30 12:13 | Outpatient (CLI) | payer OTHER, SELFPAY ==
[2025-03-03 16:19] VITALS: BMI 37.2
--- NOTE | 2025-04-30 | PATH_ITS ---
Note [facility] Accession Number: [id number] TESTS RESULT FLAG UNITS REF RANGE LAB Clinician Provided Cytology Information No. of containers..01 Other (Miscellaneous) No. of containers..02 Previously Prepared Cytology Slide Source: RIGHT THYROID NODULE DIAGNOSIS: RIGHT THYROID NODULE, FINE NEEDLE ASPIRATION. NEGATIVE FOR MALIGNANT CELLS. BETHESDA CATEGORY II. SPECIMEN CONSISTS OF BENIGN FOLLICULAR CELLS, HEMOSIDERIN-LADEN MACROPHAGES, COLLOID, AND BLOOD. THIS PATTERN IS CONSISTENT WITH A COLLOID NODULE. Pathologist ICD10: 01 E04.1 Signed out by: Bryanna Wiley MD, Pathologist NPI- [id number] Performed by: Blas Schmitt, Toll Testboard Worker ([facility]) Gross description: 30 CC, RED, CLEAR RECIEVED: IN CYTOLYT WITH 6 ALCOHOL FIXED AND 6 QUICK STAINED SLIDES ALSO 1 RNA VIAL WILL ON 09-03-2026.VO /VDU 05/03/2025 0947 Local FLAG LEGEND: L-Low Normal,H-High Normal,LL-Alert Low,HH-Alert High <-Panic Low,>-Panic High,A-Abnormal,AA-Critical Abnormal Performed at: 01 =[facility], [place] [address] Aime Deras MD, Performed at: [address], [place], [place] [id number] MD Aime Deras MD Phone: [phone]
--- NOTE | 2025-04-30 12:15 | DI.US.S_ITS ---
PROCEDURE: US FINE NEEDLE ASPIRATION INDICATIONS: thyroid nodule TECHNIQUE: The indications, alternatives, benefits, risks, and complications of the procedure were explained to the patient. Written informed consent was obtained and placed in the chart. The thyroid region was examined sonographically and a site was chosen for ultrasound guided percutaneous sampling. The skin was prepared and draped in the usual fashion, and anesthetized with 1% lidocaine infiltrated from the skin down to the thyroid gland. Multiple passes were then performed, with contents emptied into an appropriate pathology specimen container. A bandage was applied to the area of access at completion of the study. COMPARISON: None. FINDINGS: Location(s) of lesion(s) sampled: Lower pole right thyroid lobe nodule. [place]: 25 gauge hypodermic needles. Number of passes: 6 Medications: 1% lidocaine for local anaesthesia. Complications: None. IMPRESSION: Successful ultrasound-guided thyroid nodule fine needle aspiration, with cytology results pending. Please see chart below for management recommendations based on cytology results. [facility] ReportingRecommendationsNon-diagnostic* Repeat US-guided FNA, with on-site cytology evaluation if possible. * Repeated non-diagnostic nodules without high suspicion US features: close observation vs surgical consult. * Consider surgery if nodule has high suspicion US features, grows >20% in 2 dimensions on followup, or patient has clinical risk factors for malignancy. Benign* If nodule has high suspicion US features: repeat US and FNA within 12 months. * If nodule has low to intermediate suspicion US features: repeat US at 12-24 months. If nodule grows (20% increase in at least 2 dimensions, with minimal increase of 2 mm or >50% change in volume), or development of new suspicious US features, then repeat FNA or continue followup. * If nodule has very low suspicion US features: followup US at >24 months. Atypia of undetermined significance, follicular lesion of undetermined significanceRepeat FNA, molecular testing, followup US, or surgical consult.Follicular neoplasm, suspicious for follicular neoplasmSurgical consult; also consider molecular testing. Suspicious for malignancySurgical consult.MalignantSurgical consult. Dictated by: Alan Young M.D. on 04/30/2025 at 15:53 Approved by: Alan Young M.D. on 04/30/2025 at 15:53
== END ==
LOC: US 12:14
PROVIDERS: Referring Provider Otolaryngology; Visit Provider Otolaryngology
DX: E04.1 Nontoxic single thyroid nodule (principal); E04.9 Nontoxic goiter, unspecified
CPT/HCPCS: 10005